=== PATIENT | male | born 1950 | race Caucasian/White ===

== ENCOUNTER 2016-11-15 11:35 | Inpatient (IN) | payer OTHER ==
[~2016-11-15] VITALS: Ht 180.3 cm; Wt 95.3 kg
[2016-11-15] VITALS (7 sets, daily range): BP systolic 115–130; BP diastolic 65–85
--- NOTE | ~2016-11-15 | CON ---
[place], [place] REPORT OF CONSULTATION NAME: STEFFI HUGHES [facility] #: [id number] UNIT #: [id number] ROOM: 404 DOCTOR: JESSICA SAUCEDOHAYESHOWIE BIRTHDATE: [birth year] DOS: 11/16/2016 GASTROENDOSCOPIC CONSULTATION REPORT. HISTORY OF PRESENT ILLNESS: A 66-year-old gentleman who has presented with chief complaint of lower GI bleed and quite concerned. The patient has been on aspirin and Xarelto. At the time of admission, his H and H was 15 and 44, white blood cell was 7.5. Lactic acid was 1.2. Abdominal x-ray, normal bowel pattern. INR was 1.1. PT, PTT within normal limits. Comprehensive metabolic panel, GFR greater than 60. Electrolytes balance. Liver function tests normal. Troponin within normal limits. CBC differential was reevaluated, no acute drop was noticed. Chemistry remained normal. PAST MEDICAL HISTORY: Associated with history of DVT, hypertension. PAST SURGICAL HISTORY: Cataract; hernia, ventral repair; right knee arthroscopy. SOCIAL HISTORY: Nonsmoker, nonalcohol consumer. FAMILY HISTORY: Noncontributory. ALLERGIES: To no known medications. MEDICATIONS: List reviewed at home including Xarelto and aspirin and also he is on vitamin D and Norvasc. REVIEW OF SYSTEMS: HEENT: Denies double vision, blurred vision. RESPIRATORY: Denies shortness of breath. CARDIOVASCULAR: Denies chest pain. DIGESTIVE SYSTEM: With lower GI bleed. NEUROMUSCULOSKELETAL: Denies muscle wasting or tremens. Review of other systems normal. PHYSICAL EXAMINATION: VITAL SIGNS: Stable. HEENT: Head normocephalic, nontraumatic. Mouth and buccal mucosa benign. NECK: Supple, no thyromegaly. CHEST: Symmetric anatomy, equal expansion. No wheeze, no rhonchi. HEART: Normal sinus rhythm, no gallop, no murmur. ABDOMEN: Soft. No hepato-organomegaly. Bowel sounds present. No pulsatile mass. EXTREMITIES: No cyanosis, no pedal edema. NEUROLOGIC: Alert, oriented to time, place, person. IMPRESSION: Lower gastrointestinal bleed, on Xarelto and aspirin; history of deep venous thrombosis; history of hypertension. PLAN AND DISCUSSION: I am going to organize an urgent colonoscopy on him to [place], [place] REPORT OF CONSULTATION NAME: STEFFI HUGHES UNIT #: [id number] ROOM: 404 DOCTOR: JESSICA SAUCEDO,HELENA BIRTHDATE: [birth year] ensure no ischemic involvement or otherwise diverticular bleed or hemorrhoid bleed or otherwise. Thank you very much indeed for your kind referral. Colonoscopy today. HELENA LOPEZ MD CM:CONSTR:REPORT OF CONSULTATION 1414 11/17/16 0619 interface
--- NOTE | ~2016-11-15 | O ---
[place], [place] OPERATIVE NOTE NAME: STEFFI HUGHES UNIT #: [id number] ROOM: 404 DOCTOR: HELENA LOPEZ MD BIRTHDATE: [birth year] DOS: 11/16/2016 GASTROENDOSCOPIC REPORT. HISTORY OF PRESENT ILLNESS: The patient is a 66-year-old patient who has presented with chief complaint of sudden bloody BM. The patient being on Xarelto and aspirin. The patient with a history of DVT, undergoing investigation. PROCEDURE: Today's procedure part of investigation is colonoscopy. PREMEDICATION: Versed and Diprivan. SCOPE: Olympus forward-viewing colonoscope 10L video. REPORT: After putting the patient in the left lateral position and after application of lubricant to the scope, the scope was introduced; thereafter, under direct visualization, advanced through the length of colon without difficulty. Segment approximately 10 cm of ischemic colitis, mild to moderate in degree with ulceration superficially at his splenic flexure noticed. Base of the cecum explored, appendiceal orifice identified, and ileocecal valve was defined. Scope was gradually withdrawn from ascending, transverse, descending colon. No biopsy obtained since the patient on Xarelto and aspirin and tolerated the procedure well. IMPRESSION: Segmental ischemic colitis at the splenic flexure. PLAN AND DISCUSSION: This patient has a history of DVT, has to be concerned about hypercoagulable state. We are going to work up for that. He is going to be given full liquid diet and clinical reassessment. We are going to keep him on Flagyl 500 mg q. 8 hours. HELENA LOPEZ MD CM:OPRECORD:OPERATIVE NOTE [id number] HELENA LOPEZ MD 11/17/16 0616 interface
[~2016-11-15 11:35] MED LIST: ASPI-COR81 M1 PO; AUGMENTIN 875875 MG PO; HYDROCODONE BIT1 T11 PO; MASON NATURAL2000 IU PO; NORVASC5 MG PO; PREDNISONE10 MG PO; XARELTO20 M1 PO
[2016-11-15 12:41] LABS: BASO # 0.1 10*3/uL (0.0-0.1); BASO % 0.7 % (0.0-1.0); EOS # 0.1 10*3/uL (0.0-0.4); EOS % 1.9 % (1.0-4.0); HEMATOCRIT 44.9 % (42.0-52.0); HEMOGLOBIN 15.4 g/dl (14.0-18.0); LYMPH # 1.7 10*3/uL (1.3-4.4); MEAN CORPUSCULAR HGB 29.8 pg (27.0-31.0); MEAN CORPUSCULAR HGB CONC 34.3 g/dl (33.0-37.0); MEAN PLATELET VOLUME 10.4 fl (9.6-12.3); MONO # 0.6 10*3/uL (0.1-1.0); MONO % 7.4 % (3.0-9.0); NEUT % 66.7 % (47.0-73.0); PLATELET COUNT AUTOMATED 263 10*3/uL (130-400); RED BLOOD COUNT 5.16 10*6/uL (4.50-5.90); RED CELL DISTRI WIDTH 14.9 % (0-14.5); WHITE BLOOD COUNT 7.5 10*3/uL (4.8-10.8)
[2016-11-15 13:41] LABS: ACT PARTIAL THROMBO TIME 29.7 SECONDS (20.8-31.5); INTERNATIONAL NORM RATIO 1.1 (2.0-3.5)
[2016-11-15 13:49] LABS: ALBUMIN 3.2 gm/dl (3.1-4.5); ALKALINE PHOSPHATASE 80 U/L (45-117); BUN 18 mg/dl (7-24); CHLORIDE 104 mmol/L (98-107); CPK 47 U/L (39-308); CREATININE 1.09 mg/dL (0.70-1.30); MAGNESIUM 2.1 mg/dL (1.5-2.1); POTASSIUM 4.5 mmol/L (3.5-5.1); SGOT/AST 12 IU/L (3-35); SGPT/ALT 21 U/L (12-78); SODIUM 140 mmol/L (136-145); TOTAL PROTEIN 6.9 gm/dL (6.4-8.2)
[2016-11-15 13:52] LABS: CKMB < 0.5 ng/ml (0.5-3.6); TROPONIN I < 0.015 ng/ml (<0.045)
[2016-11-16] VITALS (9 sets, daily range): BP systolic 017–152; BP diastolic 61–83
[2016-11-16 07:02] LABS: BASO % 0.6 % (0.0-1.0); EOS # 0.2 10*3/uL (0.0-0.4); EOS % 3.6 % (1.0-4.0); HEMATOCRIT 43.1 % (42.0-52.0); HEMOGLOBIN 14.7 g/dl (14.0-18.0); LYMPH # 1.8 10*3/uL (1.3-4.4); LYMPH % 27.2 % (27.0-41.0); MEAN CELL VOLUME 88.3 fl (80.0-94.0); MEAN CORPUSCULAR HGB 30.1 pg (27.0-31.0); MEAN CORPUSCULAR HGB CONC 34.1 g/dl (33.0-37.0); MONO # 0.6 10*3/uL (0.1-1.0); MONO % 9.2 % (3.0-9.0); NEUT # 3.9 10*3/uL (2.3-7.9); NEUT % 59.1 % (47.0-73.0); PLATELET COUNT AUTOMATED 223 10*3/uL (130-400); RED BLOOD COUNT 4.88 10*6/uL (4.50-5.90); RED CELL DISTRI WIDTH 14.6 % (0-14.5); WHITE BLOOD COUNT 6.7 10*3/uL (4.8-10.8)
[2016-11-16 07:34] LABS: ACT PARTIAL THROMBO TIME 26.9 SECONDS (20.8-31.5); BUN 12 mg/dl (7-24); CHLORIDE 107 mmol/L (98-107); CHOLESTEROL 167 mg/dL (<200); CREATININE 0.87 mg/dL (0.70-1.30); HDL CHOLESTEROL 38 mg/dl (40-60); INTERNATIONAL NORM RATIO 1.1 (2.0-3.5); LDL CHOLESTEROL 108 mg/dL (9-159); POTASSIUM 4.1 mmol/L (3.5-5.1); SODIUM 140 mmol/L (136-145); TRIGLYCERIDES 104 mg/dl (<150); VLDL CHOLESTEROL 21 mg/dL (6-40)
[2016-11-16 08:36] LABS: VITAMIN D, 25-HYDROXY 39.5 ng/mL (30-100)
[2016-11-17] VITALS: BP 127/69
[2016-11-17 07:11] LABS: BASO % 0.6 % (0.0-1.0); EOS # 0.2 10*3/uL (0.0-0.4); EOS % 2.4 % (1.0-4.0); HEMATOCRIT 42.6 % (42.0-52.0); HEMOGLOBIN 14.7 g/dl (14.0-18.0); LYMPH # 1.5 10*3/uL (1.3-4.4); LYMPH % 22.7 % (27.0-41.0); MEAN CELL VOLUME 86.8 fl (80.0-94.0); MEAN CORPUSCULAR HGB 29.9 pg (27.0-31.0); MEAN CORPUSCULAR HGB CONC 34.5 g/dl (33.0-37.0); MEAN PLATELET VOLUME 10.1 fl (9.6-12.3); MONO # 0.5 10*3/uL (0.1-1.0); MONO % 7.7 % (3.0-9.0); NEUT # 4.5 10*3/uL (2.3-7.9); NEUT % 66.5 % (47.0-73.0); PLATELET COUNT AUTOMATED 224 10*3/uL (130-400); RED BLOOD COUNT 4.91 10*6/uL (4.50-5.90); RED CELL DISTRI WIDTH 14.4 % (0-14.5); WHITE BLOOD COUNT 6.8 10*3/uL (4.8-10.8)
[2016-11-17 07:41] LABS: BUN 9 mg/dl (7-24); CHLORIDE 107 mmol/L (98-107); CREATININE 0.91 mg/dL (0.70-1.30); POTASSIUM 3.9 mmol/L (3.5-5.1); SODIUM 139 mmol/L (136-145)
[2016-11-17 08:00] VITALS: BP 125/73
[2016-11-17 12:00] VITALS: BP 113/71
[2016-11-17 16:00] VITALS: BP 108/72
[2016-11-17 20:00] VITALS: BP 109/70
[2016-11-18] VITALS: BP 111/60
[2016-11-18 06:41] LABS: BASO # 0.1 10*3/uL (0.0-0.1); BASO % 0.7 % (0.0-1.0); EOS # 0.2 10*3/uL (0.0-0.4); EOS % 2.8 % (1.0-4.0); HEMATOCRIT 44.4 % (42.0-52.0); HEMOGLOBIN 15.2 g/dl (14.0-18.0); LYMPH # 2.2 10*3/uL (1.3-4.4); LYMPH % 28.9 % (27.0-41.0); MEAN CELL VOLUME 88.4 fl (80.0-94.0); MEAN CORPUSCULAR HGB 30.3 pg (27.0-31.0); MEAN CORPUSCULAR HGB CONC 34.2 g/dl (33.0-37.0); MEAN PLATELET VOLUME 9.9 fl (9.6-12.3); MONO # 0.6 10*3/uL (0.1-1.0); MONO % 8.3 % (3.0-9.0); NEUT # 4.4 10*3/uL (2.3-7.9); PLATELET COUNT AUTOMATED 229 10*3/uL (130-400); RED BLOOD COUNT 5.02 10*6/uL (4.50-5.90); RED CELL DISTRI WIDTH 14.4 % (0-14.5); WHITE BLOOD COUNT 7.4 10*3/uL (4.8-10.8)
[2016-11-18 08:00] VITALS: BP 102/68
[2016-11-18] MEDS ORDERED: FLAGYL500 MG PO (10:26)
[2016-11-18] MEDS ORDERED: ASPIRIN CHEWABL81 MG PO (11:00)
[2016-11-18 12:00] VITALS: BP 123/75
[2016-11-18 15:08] LABS: ANTICARDIOLIPIN AB, IGG, QN <9 GPL U/mL (0-14); ANTICARDIOLIPIN AB, IGM, QN <9 MPL U/mL (0-12); CARDIOLIPIN AB IGA 161836 <9 APL U/mL (0-11)
[2016-11-19 02:05] LABS: ANTI-THROMBIN III ACTIVITY 83 % (75-135); LUPUS DRVVT 50.1 sec (0.0-47.0); PROTEIN S, FREE 78 % (57-157); PROTEIN S, TOTAL 107 % (60-150); PTT-LA 45.5 sec (0.0-51.9)
[2016-11-19 03:08] LABS: LUPUS REFLEX INTERPRETATION Comment: (.)
== END 2016-11-18 12:50 | disposition home or self-care (01) | DRG 378 ==
LOC: ED 11:35 → EDHOLD 14:23 → 4E 14:23
PROVIDERS: Internal Medicine; ADMIT Emergency Medicine
PROC: 0DJD8ZZ Inspection of Lower Intestinal Tract, Via Natural or Artificial Opening Endoscopic (ICD-10-PCS; principal; 2016-11-16)
DX: K92.2 Gastrointestinal hemorrhage, unspecified (principal); K55.9 Vascular disorder of intestine, unspecified; K63.3 Ulcer of intestine; E44.1 Mild protein-calorie malnutrition; I82.5Y3 Chronic embolism and thrombosis of unspecified deep veins of proximal lower extremity, bilateral; K50.10 Crohn's disease of large intestine without complications; I10 Essential (primary) hypertension; Z82.3 Family history of stroke; F17.210 Nicotine dependence, cigarettes, uncomplicated; E55.9 Vitamin D deficiency, unspecified; Z71.6 Tobacco abuse counseling; Z79.01 Long term (current) use of anticoagulants; Z79.82 Long term (current) use of aspirin; Z79.899 Other long term (current) drug therapy; Z68.29 Body mass index [BMI] 29.0-29.9, adult; Z82.49 Family history of ischemic heart disease and other diseases of the circulatory system; Z83.3 Family history of diabetes mellitus; Z80.8 Family history of malignant neoplasm of other organs or systems

== ENCOUNTER → 2018-12-04 | Outpatient (CLI) | payer OTHER ==
[~2018-12-04] MED LIST changes: +ASPIRIN CHEWABL81 MG PO; +FLAGYL500 MG PO
== END | disposition home or self-care (01) ==
LOC: RAD 10:06
DX: M47.812 Spondylosis without myelopathy or radiculopathy, cervical region (principal); M25.78 Osteophyte, vertebrae

== ENCOUNTER 2019-02-15 14:08 | Inpatient (IN) | payer OTHER, MEDICARE ==
[~2019-02-15] VITALS: Ht 180.3 cm; Wt 98.9 kg
[2019-02-15 14:18] VITALS: BP 149/85
[2019-02-15 14:41] LABS: BASO # 0.1 10*3/uL (0.0-0.1); BASO % 0.4 % (0.0-1.0); EOS # 0.1 10*3/uL (0.0-0.4); EOS % 0.6 % (1.0-4.0); HEMATOCRIT 48.5 % (42.0-52.0); HEMOGLOBIN 15.8 g/dl (14.0-18.0); LYMPH # 1.2 10*3/uL (1.3-4.4); LYMPH % 8.8 % (27.0-41.0); MEAN CORPUSCULAR HGB CONC 32.6 g/dl (33.0-37.0); MEAN PLATELET VOLUME 9.9 fl (9.6-12.3); MONO % 7.7 % (3.0-9.0); NEUT # 11.1 10*3/uL (2.3-7.9); NEUT % 82.2 % (47.0-73.0); PLATELET COUNT AUTOMATED 258 10*3/uL (130-400); RED BLOOD COUNT 5.27 10*6/uL (4.50-5.90); RED CELL DISTRI WIDTH 14.9 % (0-14.5); WHITE BLOOD COUNT 13.5 10*3/uL (4.8-10.8)
[2019-02-15 14:46] VITALS: BP 116/79
[2019-02-15 14:57] LABS: ALBUMIN 3.5 gm/dl (3.1-4.5); ALKALINE PHOSPHATASE 91 U/L (45-117); BUN 15 mg/dl (7-24); CHLORIDE 105 mmol/L (98-107); CREATININE 1.27 mg/dL (0.70-1.30); POTASSIUM 3.9 mmol/L (3.5-5.1); SGOT/AST 19 IU/L (3-35); SGPT/ALT 28 U/L (12-78); SODIUM 139 mmol/L (136-145); TOTAL PROTEIN 7.6 gm/dL (6.4-8.2)
[2019-02-15 14:58] LABS: TROPONIN I < 0.015 ng/ml (<0.045)
--- NOTE | 2019-02-15 15:28 | NUR ---
PT REMAINS W/O ACUTE DISTRESS NOTED AWAITING ALL RESULTS FOR ADDITIONAL PLAN OF CARE,SAFETY PRECAUTIONS INTACT AND CALL LIGHT WITHIN REACH.
[2019-02-15 15:50] LABS: BILIRUBIN NEGATIVE (NEGATIVE); BLOOD TRACE-LYSED (NEGATIVE); CLARITY CLEAR (CLEAR); COLOR YELLOW (YELLOW); GLUCOSE NEGATIVE (NEGATIVE); KETONE TRACE (NEGATIVE); LEUKO ESTERASE NEGATIVE (NEGATIVE); NITRITE NEGATIVE (NEGATIVE); PH 5.5 (5.0-9.0); SPECIFIC GRAVITY 1.025 (1.005-1.030); UROBILINOGEN 0.2 E.U./dl (0.2-1.0)
[2019-02-15 15:51] VITALS: BP 129/92
[2019-02-15 16:02] LABS: EPITHELIAL CELLS 0-2; RBC 0-2 rbc/hpf (0-2); WBC 0-2 wbc/hpf (0-5)
[2019-02-15 18:04] VITALS: BP 120/71
[2019-02-15] MEDS ORDERED: XARELTO10 MG PO (18:07)
[2019-02-15] MEDS ORDERED: VITAMIN D400 I1 PO (18:08)
[2019-02-15] MEDS ORDERED: ASPIRIN ADULT L81 M1 PO (18:09)
--- NOTE | 2019-02-15 18:18 | NUR ---
PT "FEELING A LITTLE BETTER" @ THIS TIME,PT POSITIONED FOR COMFORT AND WATCHING T.V.,CALL LIGHT WITHIN REACH
--- NOTE | 2019-02-15 18:58 | NUR ---
PT PROVIDED A BOX LUNCH AND ANGELA MISHEL,NO COMPLAINTS VOICED.
[2019-02-15 20:07] VITALS: BP 126/64
--- NOTE | 2019-02-15 20:07 | NUR ---
A 69, admitted to , under the services of CATALINA Banks DO with a diagnosis of CHF, HYPOXIA. Chief complaint is SOB. Patient arrived via bed from ER. Monitor applied. Initial assessment completed. Vital signs taken and recorded. CATALINA BANKS DO notified of admission to the unit. Orders received. See assessment for past medical history, medications and allergies. Patient and/or family oriented to unit. [facility] visitation policy reviewed. Clothing/patient valuable form completed. BECKA GALEANA
--- NOTE | 2019-02-15 23:00 | NUR ---
PT SLEEPING AT THIS TIME. CALL LIGHT IN REACH. NO SIGNS OF DISTRESS.
[2019-02-16] VITALS: BP 108/68
--- NOTE | 2019-02-16 00:32 | NUR ---
PT MEDICATED WITH TYLENOL PER ORDER FOR TEMP OF 100.1. WILL MONITOR EFFECTIVENESS.
--- NOTE | 2019-02-16 02:00 | NUR ---
PT SLEEPING AT THIS TIME. O2 INTACT.
--- NOTE | 2019-02-16 03:09 | NUR ---
DR. CAROLINA'S ANSWERING SERVICE NOTIFIED OF CONSULT.
[2019-02-16 07:07] LABS: BASO % 0.4 % (0.0-1.0); EOS % 0.4 % (1.0-4.0); HEMATOCRIT 48.6 % (42.0-52.0); HEMOGLOBIN 15.9 g/dl (14.0-18.0); LYMPH # 1.5 10*3/uL (1.3-4.4); LYMPH % 13.2 % (27.0-41.0); MEAN CELL VOLUME 90.2 fl (80.0-94.0); MEAN CORPUSCULAR HGB 29.5 pg (27.0-31.0); MEAN CORPUSCULAR HGB CONC 32.7 g/dl (33.0-37.0); MEAN PLATELET VOLUME 9.9 fl (9.6-12.3); MONO # 1.1 10*3/uL (0.1-1.0); MONO % 10.1 % (3.0-9.0); NEUT # 8.5 10*3/uL (2.3-7.9); NEUT % 75.7 % (47.0-73.0); PLATELET COUNT AUTOMATED 254 10*3/uL (130-400); RED BLOOD COUNT 5.39 10*6/uL (4.50-5.90); RED CELL DISTRI WIDTH 14.8 % (0-14.5); WHITE BLOOD COUNT 11.2 10*3/uL (4.8-10.8)
[2019-02-16 07:34] LABS: ALBUMIN 3.3 gm/dl (3.1-4.5); ALKALINE PHOSPHATASE 87 U/L (45-117); BUN 14 mg/dl (7-24); CHLORIDE 103 mmol/L (98-107); CHOLESTEROL 166 mg/dL (<200); CREATININE 1.18 mg/dL (0.70-1.30); HDL CHOLESTEROL 49 mg/dl (40-60); LDL CHOLESTEROL 106 mg/dL (9-159); PHOSPHOROUS 2.8 mg/dL (2.5-4.9); POTASSIUM 3.5 mmol/L (3.5-5.1); SGOT/AST 20 IU/L (3-35); SGPT/ALT 30 U/L (12-78); SODIUM 140 mmol/L (136-145); TOTAL PROTEIN 7.5 gm/dL (6.4-8.2); TRIGLYCERIDES 54 mg/dl (<150); VLDL CHOLESTEROL 11 mg/dL (6-40)
[2019-02-16 08:00] VITALS: BP 110/58
[2019-02-16 12:00] VITALS: BP 106/70
[2019-02-16 16:00] VITALS: BP 121/69
--- NOTE | 2019-02-16 19:00 | NUR ---
REPORT RECEIVED FROM LETICIA MEDINA. PT AWAKE AT THIS TIME. PT OXYGEN INTACT 2L NC. NO SIGNS OR SYMPTOMS OF DISTRESS. WHITE BOARD UPDATED, CALL LIGHT IN REACH.
[2019-02-16 20:00] VITALS: BP 120/93
--- NOTE | 2019-02-16 22:33 | NUR ---
PT WATCHING TV AT THIS TIME. NO COMPLAINTS AT THIS TIME.
[2019-02-17] VITALS: BP 98/52
--- NOTE | 2019-02-17 01:00 | NUR ---
PT SLEEPING AT THIS TIME. O2 INTACT
--- NOTE | 2019-02-17 03:30 | NUR ---
PT SLEEPING AT THIS TIME. RESPIRATIONS ARE EASY AND UNLABORED. NO DISTRESS NOTED, CALL LIGHT IN REACH.
--- NOTE | 2019-02-17 04:27 | NUR ---
24 HR chart check completed.
[2019-02-17 06:40] LABS: BASO % 0.4 % (0.0-1.0); EOS # 0.2 10*3/uL (0.0-0.4); EOS % 1.5 % (1.0-4.0); HEMATOCRIT 49.4 % (42.0-52.0); LYMPH # 1.6 10*3/uL (1.3-4.4); LYMPH % 15.7 % (27.0-41.0); MEAN CELL VOLUME 90.8 fl (80.0-94.0); MEAN CORPUSCULAR HGB 29.4 pg (27.0-31.0); MEAN CORPUSCULAR HGB CONC 32.4 g/dl (33.0-37.0); MONO # 0.9 10*3/uL (0.1-1.0); MONO % 8.8 % (3.0-9.0); NEUT # 7.2 10*3/uL (2.3-7.9); NEUT % 73.4 % (47.0-73.0); PLATELET COUNT AUTOMATED 254 10*3/uL (130-400); RED BLOOD COUNT 5.44 10*6/uL (4.50-5.90); RED CELL DISTRI WIDTH 14.8 % (0-14.5); WHITE BLOOD COUNT 9.9 10*3/uL (4.8-10.8)
[2019-02-17 06:50] LABS: BUN 18 mg/dl (7-24); CHLORIDE 102 mmol/L (98-107); CREATININE 1.15 mg/dL (0.70-1.30); POTASSIUM 3.6 mmol/L (3.5-5.1); SODIUM 140 mmol/L (136-145)
[2019-02-17 08:00] VITALS: BP 108/60
[2019-02-17 12:00] VITALS: BP 128/72
--- NOTE | 2019-02-17 15:10 | NUR ---
NOTIFIED OF 6 BEAT RUN OF V-TACH. ALSO PAGED . PATIENT'S VITALS STABLE, ASLEEP AT THE TIME.
[2019-02-17 16:00] VITALS: BP 123/71
--- NOTE | 2019-02-17 19:00 | NUR ---
REPORT RECEIVED FROM LETICIA RN. PT IS AWAKE AND RESTING IN BED. NO DISTRESS NOTED ON 3L NC. NO COMPLAINTS VOICED AT THIS TIME. CALL LIGHT IN REACH.
[2019-02-17 20:00] VITALS: BP 131/77
--- NOTE | 2019-02-17 22:45 | NUR ---
PT WATCHING TV AT THIS TIME, O2 INTACT
[2019-02-18] VITALS: BP 102/61
--- NOTE | 2019-02-18 02:00 | NUR ---
PT SLEEPING AT THIS TIME, CALL LIGHT IN REACH
[2019-02-18 05:31] LABS: BASO # 0.1 10*3/uL (0.0-0.1); BASO % 0.6 % (0.0-1.0); EOS # 0.3 10*3/uL (0.0-0.4); EOS % 3.3 % (1.0-4.0); HEMATOCRIT 50.2 % (42.0-52.0); HEMOGLOBIN 16.2 g/dl (14.0-18.0); LYMPH # 1.7 10*3/uL (1.3-4.4); LYMPH % 20.4 % (27.0-41.0); MEAN CELL VOLUME 91.9 fl (80.0-94.0); MEAN CORPUSCULAR HGB 29.7 pg (27.0-31.0); MEAN CORPUSCULAR HGB CONC 32.3 g/dl (33.0-37.0); MONO # 0.8 10*3/uL (0.1-1.0); MONO % 9.4 % (3.0-9.0); NEUT # 5.4 10*3/uL (2.3-7.9); NEUT % 65.9 % (47.0-73.0); PLATELET COUNT AUTOMATED 258 10*3/uL (130-400); RED BLOOD COUNT 5.46 10*6/uL (4.50-5.90); RED CELL DISTRI WIDTH 14.7 % (0-14.5); WHITE BLOOD COUNT 8.2 10*3/uL (4.8-10.8)
[2019-02-18 05:53] LABS: BUN 25 mg/dl (7-24); CHLORIDE 105 mmol/L (98-107); CREATININE 1.36 mg/dL (0.70-1.30); SODIUM 141 mmol/L (136-145)
[2019-02-18 05:56] LABS: POTASSIUM 4.8 mmol/L (3.5-5.1)
--- NOTE | 2019-02-18 07:42 | NUR ---
Received message to fax clinical to [facility] at the [place]. Clinical faxed to [phone].
[2019-02-18 08:00] VITALS: BP 116/64
--- NOTE | 2019-02-18 09:00 | NUR ---
[employer] in to talk to patient. Patient states lives at home alone. There are 0 steps in the home. Physician: Dr. Antwon Agustin Pharmacy: [facility] Home health services: none Patient's level of ADLs: INDEPENDENT Patient has working utilities: yes DME: none Follow-up physician's appointment after d/c: will be made by the hospitalist nurse director upon discharge Does patient want to access PORTAL?: no Discharge plan discussed with patient. He lives at home alone. He is independent in his ADLs and ambulation. Discussed home health care services and he denies any home needs at this time. When medically stable he will be discharged to home. She states she will use a local [facility] for transportation on discharge. Diuresing with vini, cardio consult, echo. SRINIVAS CUI
--- NOTE | 2019-02-18 10:40 | NUR ---
HOME O2 ASSESSMENT ROOM AIR AT REST: SPO2 88% HR 94 RR 16 BP 118/68 NC 2L AT REST : SPO2 93% HR 88 RR 16 NC 2L WITH AMBULATION: SPO2 92-94% HR 83-96 NC 2L WITH RECOVERY: SPO2 93% HR 84 RR 16 BP 124/74 PT. REQUIRED 2L OF SUPPLEMENTATL OXYGEN TO KEEP SPO2 GREATER THAN OR EQUAL TO 88% AT REST AND DURING EXERTION. RN AWARE.
[2019-02-18 12:00] VITALS: BP 123/74
--- NOTE | 2019-02-18 12:33 | NUR ---
Spoke to Ash[facility] at the [facility]. Patient is not service connected and has Medicare.
--- NOTE | 2019-02-18 13:48 | NUR ---
NOTIFIED OF NEW CONSULT.
[2019-02-18 16:00] VITALS: BP 119/53; BP 122/60
--- NOTE | 2019-02-18 19:54 | NUR ---
PATIENT RESTING IN BED WITH NO NEEDS MADE. BED IN LOWEST POSITION, CALL LIGHT IN REACH
[2019-02-18 20:00] VITALS: BP 107/63
[2019-02-19] VITALS: BP 115/62
--- NOTE | 2019-02-19 05:43 | NUR ---
OK FOR PATIENT TO SHOWER PER DR WADE
[2019-02-19 07:20] LABS: HEMATOCRIT 45.6 % (42.0-52.0); HEMOGLOBIN 15.2 g/dl (14.0-18.0); MEAN CELL VOLUME 89.4 fl (80.0-94.0); MEAN CORPUSCULAR HGB 29.8 pg (27.0-31.0); MEAN CORPUSCULAR HGB CONC 33.3 g/dl (33.0-37.0); MEAN PLATELET VOLUME 10.3 fl (9.6-12.3); PLATELET COUNT AUTOMATED 290 10*3/uL (130-400); WHITE BLOOD COUNT 16.6 10*3/uL (4.8-10.8)
[2019-02-19 07:29] LABS: BUN 24 mg/dl (7-24); CHLORIDE 107 mmol/L (98-107); CREATININE 1.12 mg/dL (0.70-1.30); PHOSPHOROUS 2.5 mg/dL (2.5-4.9); POTASSIUM 4.2 mmol/L (3.5-5.1); SODIUM 140 mmol/L (136-145)
[2019-02-19 07:45] LABS: PLATELET SUFFICIENCY NORMAL (NORMAL); SCHISTOCYTES FEW; TOTAL CELLS COUNTED 100 #CELLS
[2019-02-19 08:00] VITALS: BP 140/68
--- NOTE | 2019-02-19 09:43 | NUR ---
MEDICATED WITH PRN PO TYLENOL FOR C/O HEADACHE.
--- NOTE | 2019-02-19 10:45 | NUR ---
PRN PO TYLENOL EFFECTIVE, PER PATIENT.
[2019-02-19 12:00] VITALS: BP 127/72
--- NOTE | 2019-02-19 15:15 | NUR ---
1515-CALLED [facility] REGARD[facility] QUALIFYING [facility]2, LEFT MESSAGE. ALL PAPERWORK FAXED AND CONFIRMATION RECEIVED. 1615-LEFT ANOTHER MESSAGE WITH [facility]
[2019-02-19 16:00] VITALS: BP 117/59
[2019-02-19 20:00] VITALS: BP 133/66
--- NOTE | 2019-02-19 20:30 | NUR ---
RESTING IN BED WITH HOB SLIGHTLY ELEVATED. 02 INTACT AT 2 LPM VIA N/C; PULSE OX 93%. LUNGS VERY DIMINISHED BILATERALLY WITH POOR AIR EXCANGED. NO COUGH NOTED AT THIS TIME. PT. ENCOURAGED TO STOP SMOKING; VERBALIZES UNDERSTANDING. PEDAL/ANKLE EDEMA NOTED. PT. VOICES NO C/O AT THIS TIME. CALL LIGHT WITHIN REACH.
--- NOTE | 2019-02-19 23:10 | NUR ---
PT SLEEPING AT THIS TIME. ANTIBIOTIC INFUSING WITHOUT DIFFICULTY. CALL LIGHT IN REACH.
[2019-02-20] VITALS: BP 126/52
[2019-02-20 08:00] VITALS: BP 129/72
[2019-02-20 08:25] VITALS: BP 124/60
[2019-02-20 12:00] VITALS: BP 158/60
[2019-02-20] MEDS ORDERED: MUCINEX ER600 MG PO (12:01)
[2019-02-20] MEDS ORDERED: VENTOLIN 02.5 MG/3 M INH (12:01)
[2019-02-20] MEDS ORDERED: DOXYCYCLINE100 M3 PO (12:01)
[2019-02-20] MEDS ORDERED: PREDNISONE10 MG PO (12:01)
--- NOTE | 2019-02-20 12:40 | NUR ---
Discussed with patient the need for a nebulizer and where he would like to get the nebulizer from. Discussed hospital pharmacy and he is agreeable as he [facility] or if they will agree he needs it. Hospitalist nurse director notified. When medically stable he will be discharged to home. He denies any home needs at this time.
--- NOTE | 2019-02-20 14:43 | NUR ---
Discharge instructions reviewed with patient. Patient receptive and verbalizes understanding. Follow-up care arranged. Written instructions given to patient. [facility]. PATIENT DISCHARGED TO [facility], AMBULATORY WITH O2 TANK, TO [facility] ON THE WAY TO [facility], FOR TRANSPORT HOME BY [facility]. ALPHONSE GARNER
== END 2019-02-20 14:43 | disposition home or self-care (01) | DRG 291 ==
LOC: ED 14:08 → 4E 18:25 → EDHOLD 18:25 → 4E 19:00
PROVIDERS: Emergency Medicine; Family Medicine; Internal Medicine; Nurse Practitioner Family; Student in an Organized Health Care Education/Training Program; ADMIT Internal Medicine
DX: I11.0 Hypertensive heart disease with heart failure (principal); N17.0 Acute kidney failure with tubular necrosis; J96.01 Acute respiratory failure with hypoxia; R65.10 Systemic inflammatory response syndrome (SIRS) of non-infectious origin without acute organ dysfunction; E44.1 Mild protein-calorie malnutrition; I82.5Y3 Chronic embolism and thrombosis of unspecified deep veins of proximal lower extremity, bilateral; J44.0 Chronic obstructive pulmonary disease with (acute) lower respiratory infection; J44.1 Chronic obstructive pulmonary disease with (acute) exacerbation; I50.23 Acute on chronic systolic (congestive) heart failure; J20.9 Acute bronchitis, unspecified; Z96.1 Presence of intraocular lens; I50.9 Heart failure, unspecified; R73.9 Hyperglycemia, unspecified; E55.9 Vitamin D deficiency, unspecified; R59.0 Localized enlarged lymph nodes; E66.9 Obesity, unspecified; F17.210 Nicotine dependence, cigarettes, uncomplicated; R73.03 Prediabetes; T50.2X5A Adverse effect of carbonic-anhydrase inhibitors, benzothiadiazides and other diuretics, initial encounter; Y92.238 Other place in hospital as the place of occurrence of the external cause; Z71.6 Tobacco abuse counseling; Z98.49 Cataract extraction status, unspecified eye; Z82.49 Family history of ischemic heart disease and other diseases of the circulatory system; Z82.3 Family history of stroke; Z83.3 Family history of diabetes mellitus; Z80.8 Family history of malignant neoplasm of other organs or systems; Z86.73 Personal history of transient ischemic attack (TIA), and cerebral infarction without residual deficits; Z79.82 Long term (current) use of aspirin; Z79.899 Other long term (current) drug therapy; Z79.01 Long term (current) use of anticoagulants; Z68.30 Body mass index [BMI] 30.0-30.9, adult

== ENCOUNTER → 2020-08-17 | Outpatient (CLI) | payer OTHER ==
[~2020-08-17] MED LIST changes: +ASPIRIN ADULT L81 M1 PO; +DOXYCYCLINE100 M3 PO; +MUCINEX ER600 MG PO; +VENTOLIN 02.5 MG/3 M INH; +VITAMIN D400 I1 PO; +XARELTO10 MG PO
== END | disposition home or self-care (01) ==
LOC: US 07-27 17:00
PROVIDERS: ATTEND Nurse Practitioner Family
DX: E04.1 Nontoxic single thyroid nodule (principal); I63.9 Cerebral infarction, unspecified

== ENCOUNTER 2023-08-20 09:28 | Emergency (ER) | payer MEDICARE, OTHER ==
[~2023-08-20] VITALS: Ht 180.3 cm; Wt 102.1 kg
[~2023-08-20 09:28] MED LIST changes: +B12 ACTIVE1000 MCG PO; +DIPROSONE 0.05%15 GM T; +IRON325 M1 PO; +LIPITOR20 MG PO; +LOSARTAN POTASS50 M1 PO; +MUCINEX1200 M1 PO; +PANTOPRAZOLE SO40 MG PO; +TYLENOL325 M2 PO; +XARE20MG PO; -XARELTO10 MG PO; +ZITHROMAX TRI-500 M1 PO
== END 2023-08-20 10:42 | disposition home or self-care (01) ==
LOC: ED 09:28
DX: K11.20 Sialoadenitis, unspecified (principal); I10 Essential (primary) hypertension; F17.200 Nicotine dependence, unspecified, uncomplicated; Z98.890 Other specified postprocedural states